=== PATIENT | female | born 1990 | race Caucasian/White ===

== ENCOUNTER 2018-02-05 19:45 | Observation (INO) ==
[2018-02-05 20:05] VITALS: BP 127/74
[2018-02-05 20:23] LABS: Bilirubin,Urine Negative (Negative); Blood,Urine Moderate (Negative); Clarity,Urine Cloudy (Clear); Color,Urine Yellow (Yellow); Glucose,Urine (UA) Normal (Normal); Ketones,Urine Negative (Negative); Leukocyte Esterase,Urine Large (Negative); Nitrite,Urine Negative (Negative); PH,Urine 6.5 pH Units (5.0-8.0); Protein,Urine 30 mg/dL (Neg-Trace); Specific Gravity,Urine 1.014 (1.010-1.025); Urobilinogen,Urine Normal (Normal)
[2018-02-05 20:24] LABS: Bacteria,Urine Many per hpf (None-Few); Hyaline Casts,Urine None Seen per lpf (None-Few); RBC,Urine 50-100 per hpf (0-3); Squamous Epithelial Cell,Urine Many per lpf (None-Few); WBC,Urine TNTC per hpf (0-3)
[2018-02-05 20:28] LABS: Amphetamine Screen,Urine Negative ng/mL (Cutoff=1000); Barbiturate Screen,Urine Negative ng/mL (Cutoff=200); Benzodiazepines Screen,Urine Negative ng/mL (Cutoff=200); Cannabinoid Screen,Urine Negative ng/mL (Cutoff = 50); Cocaine Screen,Urine Negative ng/mL (Cutoff= 300); Opiate Screen,Urine Negative ng/mL (Cutoff=300); Phencyclidine Screen,Urine Negative ng/mL (Cutoff=25)
[2018-02-05] MEDS ORDERED: Acetaminophen 325 MG TABLET PO ONE (20:42)
--- NOTE | 2018-02-05 20:45 | Discharge Summary ---
Date of Encounter: 02/05/18 Time of Encounter: 20:45 - Discharge Diagnosis (1) 35 weeks gestation of Priority: Primary Status: Acute Comments: admitted for observation (2) Dysuria Priority: Secondary Status: Acute Comments: UA sent to lab (3) Low back pain during Priority: Secondary Status: Acute Comments: labor evaluation Qualifiers: Trimester: third trimester Qualified Code(s): O26.893 - Other specified related conditions, third trimester; M54.5 - Low back pain; M54.5 - Low back pain - Discharge Medications Prescriptions: Nitrofurantoin (BID) [Macrobid] 100 mg PO BID 7 Days #14 capsule Home Medications: Nitrofurantoin (BID) [Macrobid] 100 mg PO BID 7 Days #14 capsule 02/05/18 [Rx] Data Procedures and tests throughout hospitalization: Laboratory Tests 02/05/18 02/05/18 20:11 20:11 Urine Color Yellow Urine Clarity Cloudy A Urine pH 6.5 Ur Specific [place] 1.014 Urine Protein 30 H Urine Glucose (UA) Normal Urine Ketones Negative Urine Blood Moderate H Urine Nitrite Negative Urine Bilirubin Negative Urine Urobilinogen Normal Ur Leukocyte Esterase Large H Urine Microscopic RBC 50-100 H Urine Microscopic WBC TNTC H Ur Squamous Epith Cells Many H Urine Bacteria Many H Hyaline Casts None Seen Ur Culture Indicated? NO. Urine Opiates Screen Negative Ur Barbiturates Screen Negative Ur Phencyclidine Scrn Negative Ur Amphetamines Screen Negative U Benzodiazepines Scrn Negative Urine Cocaine Screen Negative U Marijuana (THC) Screen Negative Labs on day of discharge: Labs from last 24 hours 02/05/18 02/05/18 20:11 20:11 Urine Color Yellow Urine Clarity Cloudy A Urine pH 6.5 Ur Specific [place] 1.014 Urine Protein 30 H Urine Glucose (UA) Normal Urine Ketones Negative Urine Blood Moderate H Urine Nitrite Negative Urine Bilirubin Negative Urine Urobilinogen Normal Ur Leukocyte Esterase Large H Urine Microscopic RBC 50-100 H Urine Microscopic WBC TNTC H Ur Squamous Epith Cells Many H Urine Bacteria Many H Hyaline Casts None Seen Ur Culture Indicated? NO. Urine Opiates Screen Negative Ur Barbiturates Screen Negative Ur Phencyclidine Scrn Negative Ur Amphetamines Screen Negative U Benzodiazepines Scrn Negative Urine Cocaine Screen Negative U Marijuana (THC) Screen Negative Date of admission: 02/05/18 19:45 Discharging clinician: Silvia Tena Anticipated date of discharge: 02/05/18 - Patient Status Disposition: Home, Self-Care Condition: Good Functional capacity at discharge: independent ambulation - Discharge Instructions Follow Up With: Allison Wick CNM [Advanced Practice Nurse] - - Diet and Activity Activity: increase activity as tolerated Diet: regular diet 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 Patient denies LOF or VB. Patient reports +FM. Time Attestation: Total time spent providing and/or coordinating discharge services: Time Spent: Less than 30 minutes Exam - Constitutional Vitals: Temp Pulse Resp BP 98.3 F 118 16 127/74 02/05/18 19:55 02/05/18 19:55 02/05/18 19:55 02/05/18 19:55 General appearance IM: A&O X 3, pleasant, answers questions appropriately - Respiratory Respiratory exam: Present: CTAB - Cardiovascular Cardiovascular exam IM: Present: RRR, +S1, +S2 - GI/Abdominal GI/Abdominal exam IM: normal bowel sounds - Extremities Exam Extremities exam IM: Present: full ROM, normal capillary refill, normal inspection - Neurological Exam Neurological exam: alert, oriented X3, reflexes normal - Other Additional findings: SVE per RN 1cm - VTE Reasons for not Prescribing Prophylaxis: Treatment not Indicated - Low risk for VTE
== END 2018-02-05 21:16 | disposition home or self-care (01) ==
LOC: 1NENULAB
PROVIDERS: ADMIT Obstetrics & Gynecology; ATTEND Obstetrics & Gynecology

== ENCOUNTER 2018-03-03 08:27 | Inpatient (IN) ==
[2018-03-03] MEDS ORDERED: Naloxone 0.4 MG/ML INJ IVP PRN (09:29)
[2018-03-03] MEDS ORDERED: Famotidine 20 MG/2 ML VIAL IVP PRN (09:29)
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
[2018-03-03 10:09] LABS: Basophils % 0.1 %; Eosinophils # 0.1 K/mcL (0.0-0.6); Eosinophils % 1.1 %; Hematocrit 36.3 % (35.3-44.9); Immature Granulocytes % 0.4 % (0-4); Lymphocytes # 1.2 K/mcL (0.6-4.6); Lymphocytes % 17.4 %; Mean Corpuscular HGB Conc 33.1 g/dL (31.6-35.5); Mean Corpuscular Hemoglobin 29.8 pg (28.0-33.3); Mean Corpuscular Volume 90.1 fL (83.0-100.0); Mean Platelet Volume 12.6 fL (9.4-12.4); Monocytes # 0.6 K/mcL (0.0-1.3); Monocytes % 7.7 %; Neutrophils # 5.2 K/mcL (1.6-8.9); Platelet Count 120 K/mcL (140-400); Red Blood Count 4.03 M/mcL (3.82-4.97); Red Cell Distribution Width 15.1 % (11.5-14.5); Segmented Neutrophils % 73.3 %
--- NOTE | 2018-03-03 10:09 | OB Labor Progress Note ---
Date of Encounter: 03/03/18 Time of Encounter: 10:05 Labor Progress Note - Subjective Subjective: Pt denies complaints at this time. - Cervix Cervix: 3/50/-2 - Heart Tones Heart Tones: Category I - [place]: irregular and mild - Interventions Interventions: Krishnamurthy placed in cervix using sterile technique. Balloon inflated with 60ml sterile water. Pt tolerated well. - Plan Plan: Will allow intermittent monitoring so mother can ambulate for now. Clear liquid diet. Anticipate .
[2018-03-03 10:28] LABS: Amphetamine Screen,Urine Negative ng/mL (Cutoff=1000); Barbiturate Screen,Urine Negative ng/mL (Cutoff=200); Benzodiazepines Screen,Urine Negative ng/mL (Cutoff=200); Cannabinoid Screen,Urine Negative ng/mL (Cutoff = 50); Cocaine Screen,Urine Negative ng/mL (Cutoff= 300); Opiate Screen,Urine Negative ng/mL (Cutoff=300); Phencyclidine Screen,Urine Negative ng/mL (Cutoff=25)
--- NOTE | 2018-03-03 12:45 | Anesthesia Evaluation PreOp ---
Date of Encounter: 03/03/18 Time of Encounter: 10:35 - Past History Planned Operation: labor epidural Cardiac History: Denies any Significant Hx Pulmonary History: Denies Any Significant HX [employer] History: Denies Any Significant HX Other Medical History: Denies Any Significant HX Anesthesia History: No Prior Anesthetic Complications (never had surgery or anesthesia. Denies FHAP.) : Yes Drug use: none Medications and Allergies 3 Allergy/AdvReac Type Severity Reaction Status Date / Time No Known Allergies Allergy Verified 02/05/18 21:01 - Meds/Allergy Pre-op Review Medications Reviewed: Yes Allergies Reviewed: Yes Beta Blockers on Current Med List: No Anesthesia Results - Labs 03/03/18 09:31 Anesthesia Exam VSS and FHTs stable Height: 5'7" Weight: 120kg NPO (# of Hours): >8 Pain Scale: 0 Pain Scale Used: Numeric (1 - 10) - HEENT Pupil (Motor): Pupils equal Mallampati: II Teeth: Normal Oral Opening: Greater than 3 - [employer] LOC: Oriented [employer] Motor: Normal RUE, Normal LUE, Normal RLE, Normal LLE, Normal Face [employer] Sensory: Normal: RUE, LUE, RLE, LLE, Face - Cardiac Rhythm: Regular - Pulmonary Breath Sounds: bilateral Clear Respiratory Effort: Symmetrical Anesthesia Assess/Plan ASA Score: 2 Modified [place] Scale for Level of Consciousness: Cooperative, oriented, and tranquil Anesthetic Plan: Regional Monitoring Plan: Standard Monitors
[2018-03-03] MEDS ORDERED: *HR* FentaNYL (PF) 100 MCG/2 ML VIAL EP ONE (12:47)
[2018-03-03] MEDS ORDERED: Bupivacaine-MPF 0.25% 10 ML VIAL EP ONE (12:47)
[2018-03-03] MEDS ORDERED: Epidural Premix (fent/bupiv) 110 ML EP SCH (13:00)
--- NOTE | 2018-03-03 14:04 | OB Labor Progress Note ---
Date of Encounter: 03/03/18 Time of Encounter: 14:02 Labor Progress Note - Subjective Subjective: Pt reports increased discomfort with contractions. She also reports a large gush of clear fluid. - Cervix Cervix: 6/70/-2 - Heart Tones Heart Tones: Category I - [place]: irregular - Interventions Interventions: AROM of forebag following SROM for large amount clear fluid. - Plan Plan: COntinue to monitor. Will augment with pitocin if needed. Anticipate .
[2018-03-03] MEDS ORDERED: Oxytocin 20 units/ LR 1000 mL 20 UNIT/1,000 ML BAG IVC SCH ×2 (15:30→19:55)
[2018-03-03] MEDS ORDERED: Ringers Solution, Lactated 1,000 ML ONE (16:01)
--- NOTE | 2018-03-03 16:01 | OB Labor Progress Note ---
Date of Encounter: 03/03/18 Time of Encounter: 16:00 Labor Progress Note - Subjective Subjective: Pt reports some strong contractions. - Cervix Cervix: 6-7/70/-2 - Heart Tones Heart Tones: Category I - [place] Ign[place]: irregular - Plan Plan: Begin pitocin augmentation. Frequent repositioning. Anticipate .
--- NOTE | 2018-03-03 19:26 | OB/GYN Procedure Note ---
Delivery - Delivery Date: 03/03/18 Provider: Emeli Ho (Leti Hernandez DO, PGY2) Intrapartum events: polyhydramnios Delivery induction: oxytocin, ahumada Delivery augmentation: rupture of membranes (AROM of forebag following SROM of large amount of clear fluid) Delivery monitor: external FHT, external uterine Anesthesia: none Estimated Blood Loss: 200 - (s) Infant A Infant Delivery Date: 03/03/18 Infant Delivery Time: 18:54 Presentation: vertex Position: OA Route of delivery: Gender: Female Viability: Viable Pounds: 8 Ounces: 8 Weight Gram: 3870 kg at 1 minute: 8 at 5 mins: 9 Shoulder Dystocia: not encountered Specimens collected: cord blood Placenta: spontaneous Cord: 3 umbilical vessels - Repair Episiotomy: none Laceration Description: None - Complications Delivery complications: none Delivery comments: Patient progressed to complete and began pushing. Under maternal effort she delivered a liveborn female, vertex, OA, APGARS 8/9. The head delivered and no nuchal was enountered. The shoulders delivered easily and the body followed. Baby was immediately placed on the maternal abdomen. After pulsation ceased, the cord was clamped and cut. The placenta delivered spontaneously, intact with a 3-vessel cord at 1859. No lacerations were encountered. EBL 200ml. A sponge count was completed and correct. Mother and baby were left bonding skin to skin in labor and delivery. Leti Hernandez DO, PGY2 was present and assisted with delivery. - Disposition Mom disposition: stable in LDR [place] disposition: stable in LDR
[2018-03-03] MEDS ORDERED: Acetaminophen 325 MG TABLET PO PRN (19:55)
[2018-03-03] MEDS ORDERED: Benzocaine/Menthol 56 GM AEROSOL SPRAY TP PRN (19:55)
[2018-03-03] MEDS ORDERED: Lanolin 28 GM TUBE TP PRN (19:55)
[2018-03-03] MEDS: Ibuprofen 600 MG TABLET PO PRN (21:41)
[2018-03-04] MEDS ORDERED: Prenatal Vit/FA 1 EACH TABLET PO SCH (09:00)
--- NOTE | 2018-03-04 09:37 | Discharge Summary ---
Date of Encounter: 03/04/18 Time of Encounter: 09:33 - Discharge Diagnosis (1) Vaginal delivery Priority: Primary Status: Acute Comments: Pt reports pain well controlled with PO medications Tolerating regular diet Voiding independently Passing flatus, but no BM yet Ambulating independently well Lochia light Discharge home today. (2) Breast feeding status of mother Priority: Secondary Status: Acute - Discharge Medications Prescriptions: Ibuprofen [Motrin] 600 mg PO Q6HR PRN #30 tablet PRN Reason: Cramping Breast Pump [BREAST PUMP] 1 each .ROUTE AD #1 each Docusate [Colace] 100 mg PO BID #30 capsule Vit/FA 1 each PO DAILY #30 tablet Home Medications: Acetaminophen [Tylenol] 650 mg PO Q6HR PRN tablet 03/04/18 [Rx] Benzocaine/Menthol [place] [Dermoplast [place]] 1 appl TP QID PRN aerosol 03/04/18 [Rx] Breast Pump [BREAST PUMP] 1 each .ROUTE AD #1 each 03/04/18 [Rx] Docusate [Colace] 100 mg PO BID #30 capsule 03/04/18 [Rx] Ibuprofen [Motrin] 600 mg PO Q6HR PRN #30 tablet 03/04/18 [Rx] Lanolin 1 appl TP Q4HR PRN tube 03/04/18 [Rx] Mupirocin [Bactroban Oint] 1 appl TP BID tube 03/04/18 [Rx] Vit/FA 1 each PO DAILY #30 tablet 03/04/18 [Rx] Allergies/Adverse Reactions: 3 Allergy/AdvReac Type Severity Reaction Status Date / Time No Known Allergies Allergy Verified 02/05/18 21:01 Data Procedures and tests throughout hospitalization: Laboratory Tests 03/03/18 03/03/18 09:25 09:31 WBC 7.1 RBC 4.03 Hgb 12.0 Hct 36.3 MCV 90.1 MCH 29.8 MCHC 33.1 RDW 15.1 H Plt Count 120 L MPV 12.6 H Immature Gran % 0.4 Seg Neutrophils % 73.3 Lymphocytes % 17.4 Monocytes % 7.7 Eosinophils % 1.1 Basophils % 0.1 Neutrophils # 5.2 Lymphocytes # 1.2 Monocytes # 0.6 Eosinophils # 0.1 Basophils # 0.0 Urine Opiates Screen Negative Ur Barbiturates Screen Negative Ur Phencyclidine Scrn Negative Ur Amphetamines Screen Negative U Benzodiazepines Scrn Negative Urine Cocaine Screen Negative U Marijuana (THC) Screen Negative Labs on day of discharge: Labs from last 24 hours 03/03/18 03/03/18 09:31 09:25 WBC 7.1 RBC 4.03 Hgb 12.0 Hct 36.3 MCV 90.1 MCH 29.8 MCHC 33.1 RDW 15.1 H Plt Count 120 L MPV 12.6 H Immature Gran % 0.4 Seg Neutrophils % 73.3 Lymphocytes % 17.4 Monocytes % 7.7 Eosinophils % 1.1 Basophils % 0.1 Neutrophils # 5.2 Lymphocytes # 1.2 Monocytes # 0.6 Eosinophils # 0.1 Basophils # 0.0 Urine Opiates Screen Negative Ur Barbiturates Screen Negative Ur Phencyclidine Scrn Negative Ur Amphetamines Screen Negative U Benzodiazepines Scrn Negative Urine Cocaine Screen Negative U Marijuana (THC) Screen Negative Date of admission: 03/03/18 08:27 Primary care physician: PCP ROMINA Consults: 03/03/18 19:55 Consult to Emulsification Operator [CONS] Routine Comment: Vaginal delivery, consult needed Discharging clinician: Izzy José Anticipated date of discharge: 03/04/18 - Patient Status Disposition: Home, Self-Care Condition: Good Functional capacity at discharge: independent ambulation Overall status at discharge: patient is progressing back to baseline - Discharge Instructions Follow Up With: ROMINA,PCP [Primary Care Provider] - Izzy José [Advanced Practice Nurse] - - Diet and Activity Activity: increase activity as tolerated Diet: regular diet Hospital Course Reason for admission: induction of labor, IUP at term Delivery: Episiotomy: none Laceration: none Other procedures: none complications: none Discharge diagnosis: IUP at term delivered [place] baby: female Time Attestation: Total time spent providing and/or coordinating discharge services: Time Spent: Less than 30 minutes Exam - Constitutional Vitals: Temp Pulse Resp BP Pulse Ox 97.8 F 83 16 120/70 99 03/04/18 09:12 03/04/18 09:12 03/04/18 09:12 03/04/18 09:12 03/04/18 09:12 General appearance IM: A&O X 3 - Respiratory Respiratory exam: Present: CTAB - Cardiovascular Cardiovascular exam IM: Present: RRR, +S1, +S2 - GI/Abdominal GI/Abdominal exam IM: normal bowel sounds, no peritoneal signs - Rectal Rectal exam: deferred - Uterine Tone: Firm Uterus Position: At Umbilicus, Midline - Extremities Exam Extremities exam IM: Present: normal inspection, radial pulses palpable and symmetrical - Neurological Exam Neurological exam: alert, oriented X3 - Psychiatric Additional comments: Pt feeling mentally well today. Denies history of ppd. S/sx of ppd discussed and pt verbalized understanding of when to call.
[2018-03-04] MEDS: Ibuprofen 600 MG TABLET PO PRN (10:25)
[2018-03-04 18:02] VITALS: BP 95/53
== END 2018-03-04 19:55 | disposition home or self-care (01) | DRG 560 ==
LOC: 1NENULAB 08:27 → 1NENUOBS 21:46
PROVIDERS: ADMIT Obstetrics & Gynecology; ATTEND Obstetrics & Gynecology